=== PATIENT | female | born 1995 | race Caucasian/White ===

== ENCOUNTER 2024-11-30 15:57 | Outpatient (CLI) | payer OTHER, SELFPAY ==
[2024-12-02 07:27] LABS: HPV Source Cervix
[2024-12-05 15:25] LABS: Pap Test Digital Imaging Done
== END 2024-11-30 15:58 | disposition home or self-care (01) ==
PROVIDERS: PCP Emergency Medicine; Visit Provider Registered Nurse
DX: Z12.4 Encounter for screening for malignant neoplasm of cervix (principal); Z11.51 Encounter for screening for human papillomavirus (HPV)
CPT/HCPCS: 87624; 87625; 88141; 88142; 88175

== ENCOUNTER 2025-03-05 13:46 | Outpatient (CLI) | payer OTHER, SELFPAY ==
--- NOTE | 2025-03-05 14:00 | CRLHL7_ITS ---
For Patients: As a result of the Cures Act, medical imaging exams and procedure reports are released immediately into your electronic medical record. You may view this report before your referring provider. If you have questions, please contact your health care provider. OBSTETRICAL ULTRASOUND TRANSVAGINAL CLINICAL INDICATION: Dating and viability. LMP: 01/02/2025 HANH by LMP: 10/09/2025 Gestational age: 8 weeks 6 days PREVIOUS ULTRASOUND: No TECHNIQUE: Real-time hughes-scale imaging of the fetus was performed transvaginal. Transvaginal imaging was performed for better visualization of the endometrium and ovaries. FINDINGS: CRL: 2.8 cm, 9 weeks 4 days; HANH 10/04/2025 heart rate: 167 BPM Gestational sac: 4.1 cm, appears within normal limits Yolk sac: 4.3 mm, appears within normal limits Right ovary: Not visualized Left ovary: Not visualized IMPRESSION: 1. Single living intrauterine measures 9 weeks 4 days with sonographic due date of 10/04/2025. 2. Right-sided subchorionic hemorrhage measures 2.0 x 2.6 x 1.0 cm. 3. Left-sided subchorionic hemorrhage measures 2.9 x 2.5 x 2.0 cm. BRENTON JOY M.D. Diagnostic Radiologist [email or web address] Transcribed: 4:[address]/Dictated by: Brenton Joy MD @ 03/05/2025 2:58:00 PM (Electronically Signed)
== END 2025-03-05 13:47 | disposition home or self-care (01) ==
LOC: US 13:47
PROVIDERS: Visit Provider Registered Nurse
DX: O20.9 Hemorrhage in early pregnancy, unspecified (principal); Z3A.09 9 weeks gestation of pregnancy
CPT/HCPCS: 76817

== ENCOUNTER 2025-03-31 10:52 | Emergency (ER) | payer OTHER, SELFPAY ==
--- OUTSIDE RECORDS SUMMARY | 2025-03-31 10:54 | XMS_ITS | Clinical Summary ---
Author Organization [facility] At [facility] Address [address] [place] [address] Care Team Providers Care Tooling Inspector Name Role Phone Unavailable Primary Care Provider Unavailabl e Medications MedicationSigDispense QuantityRefillsLast FilledStart DateEnd DateStatus ALBUTEROL SULFATE HFA 90 MCG/ACTUATION AEROSOL INHALER 2 each four times a day for using inhaler - 1 ctive benzonatate (TESSALON) 200 MG capsule 1 capsule three times a day for by mouth - 24 ctive Social History Tobacco UseTypesPacks/DayYears UsedDateSmoking Tobacco: Never Assessed CommentsUnknownSex and Gender InformationValueDate RecordedSex Assigned at Not on fileLegal HaeFmitjw36/03/2022 10:03 AM ESTGender IdentityNot on file Sexual OrientationNot on file Plan of Treatment Not on file Medical Devices Not on file
--- OUTSIDE RECORDS SUMMARY | 2025-03-31 10:54 | XMS_ITS | Clinical Summary ---
Author Organization [facility] Address [address] [place] [id number] Care Team Providers Care Carpet Inspector Name Role Phone Sary, [facility] Mobile Primary Care Provider Allergies Active AllergyReactionsCriticalityNoted ZkajYtamnnmdUmumxWdtfZna40/12/2024 Social History Tobacco UseTypesPacks/DayYears UsedDateSmoking Tobacco: Never AssessedAdolescent EducationAnswerDate RecordedGetting School Help NeededNot on file04/24/2023 CommentsNoSex and Gender InformationValueDate RecordedSex Assigned at BirthNot on fileLegal MuxBvufkm88/12/2024 8:59 PM CSTGender IdentityNot on file Sexual OrientationNot on file Last Filed Vital Signs Vital SignReadingTime TakenCommentsBlood Wiqshbzb653/8204/24/2023 12:05 AM ALUMINUM SIDING APPLICATOR Plnfk9115/13/2024 12:05 AM EKBPeuuqwqqmdp58.6 ??C (97.9 ??F)04/23/2023 9:01 PM CSTRespiratory Dqzx307104/24/2023 12:05 AM CSTOxygen Edzqbuhsai51%04/24/2023 12:05 AM CSTInhaled Oxygen Concentration--Weight--Height--Body Mass Index-- Plan of Treatment Health MaintenanceDue DateLast DoneCommentsADVANCE CARE ZWJKHCMQ65/25/1995ANNUAL REVIEW OF HM GZSIZA20 1994YEARLY PREVENTIVE VISIT1997HIV SCREENING 2009HEPATITIS C JLSMVJRRJ19/25/3451CTB1211/04/2015DTAP/TDAP/TD VACCINE (6 - Td or Tdap), 08/13/2000, 05/13/1995, Additional history existsPHQ-2 (once per calendar year)5COVID-19 VACCINE ( season)2024INFLUENZA VACCINE (#1)2024ZOSTER VACCINE (1 of 2) 2044HEPATITIS B VRPVZEQRwffsgabv96/18/1996, 02/25/1995, 01/07/1995HPV CQQCDPVDsjorwjhf87/03/2014, 12/15/2007, 05/10/2007MENINGITIS VACCINECompleted 10/12/2013, 12/15/2007PNEUMOCOCCAL VACCINE: PEDIATRICS (0 to 5 YEARS) AND AT- RISK PATIENTS (6 to 49 YEARS)Aged OutNo longer eligible based on patient's age to complete this topic Insurance Care Teams Team MemberRelationshipSpecialtyStart DateEnd [facility], [address] [address] PCP - General04/23/23
--- OUTSIDE RECORDS SUMMARY | 2025-03-31 10:54 | XMS_ITS | Clinical Summary ---
Author Organization [facility] Address [address] [place] [id number] Care Team Providers Care Spreader Operator Name Role Phone Therese Neff MD Primary Care Provider Unav ailable Allergies No known active allergies Medications No known medications Active Problems ProblemNoted DateDiagnosed VtreJezttkcf21/09/2011Regular huzfazlfgzs02/20/2007 Exyfmm5506/29/2006 Immunizations ImmunizationAdministration DatesNext LdrRLB8805/13/1995,02/25/1995,01/07/1995DTaP 08/13/2000HIB PRP-OMP (PedvaxHIB)05/13/1995,02/25/1995,01/07/1995Hepatitis A (Peds)10/12/2013,12/15/2007Hepatitis B (Peds)02/28/1996,02/25/1995,01/07/1995 Human Papilloma Virus Qnpnetx5810/12/2013,12/15/2007,05/10/2007Inactivated Polio Umcfgtu4608/13/2000MMR08/13/2000,02/28/1996Meningococcal Vaccine (Menactra) 10/12/2013,12/15/2007Oral Polio Ostyedu3205/13/1995,02/25/1995,01/07/1995Tdap 12/15/2007 Family History Medical HistoryRelationNameCommentsGeneticOther 1no problems with anesthesia OtherOther 2mggf glaucomaGI DiseaseSisterirritable bowel syndromeRelationName StatusCommentsOther 1Other 2Sister Social History Tobacco UseTypesPacks/DayYears UsedDateSmoking Tobacco: NeverSmokeless Tobacco: NeverAlcohol UseStandard Drinks/WeekCommentsNo0 (1 standard drink = 0.6 oz pure alcohol)Alcoholic Drinks/day: 0PHQ-2AnswerDate RecordedPHQ-2 Gcgqe792 Social ConnectionsAnswerDate RecordedFrequency of Communication with Friends and FamilyNot on file04/12/2021Financial Resource StrainAnswerDate Recorded Difficulty of Paying Living ExpensesNot on file04/12/2021ifficulty of Paying Living ExpensesNot on file04/12/2021CommentsNoSex and Gender Information ValueDate RecordedSex Assigned at BirthNot on fileLegal BiaPmlnbc88/14/2013 5:27 AM CSTGender IdentityNot on fileSexual OrientationNot on fileOccupationIndustry Job Start DateJob End DatestudentNot on fileNot on fileNot on file Obstetrics History GravidaParaTermPretermABIABSABEctopicMultipleLivingLive Juiemi7KllyAxracyvAS Total LaborLabor/2nd/7emMnitibEgtHysjLghlBBTBreX5G9RmcrLgdwZyinloy Last Filed Vital Signs Vital SignReadingTime TakenCommentsBlood Wblottml856/6407 4:00 PM CDT Swibv237211/04/2020 4:00 PM MINEcstkfnowhq81.8 ??C (98.3 ??F)11/08/2017 1:59 PM CDTRespiratory Qrhg038911/18/2015 1:26 PM CDTOxygen Uvtyrthckm90%11/18/2015 1:26 PM CDTInhaled Oxygen Concentration--Kcpmbh892.9 kg (249 lb)11/04/2020 4:03 PM YSPTbdoaj635.3 cm (5' 3.5)11/04/2020 4:00 PM CDTBody Mass Index43.42011/04/2020 4:00 PM CDT Plan of Treatment Health MaintenanceDue DateLast DoneCommentsHIV for age 15-Hepatitis C screening for age 18-Pap test for age 21-Tetanus gllttvb0312/14/201709/MI (ht and wt on same day) for age 18+11/08/2018 11/08/2017, 08/24/2016, 11/18/2015Depression screening for age 12+11/08/2018 11/08/2017, 08/24/2016COVID-19 vaccine series (1 - 2024- season)2024 Influenza Vaccine (#1)2024Hepatitis B series for 19+Kqskqjuyl23/18/1996, 02/25/1995, 01/07/1995HPV series for age 9-08Vrjkaubkm45/03/2014, 12/15/2007, 05/10/2007Pneumococcal series for age 6-49Aged OutNo longer eligible based on patient's age to complete this topic Insurance Care Teams Team MemberRelationshipSpecialtyStart DateEnd Date [facility]
[2025-03-31 10:58] VITALS: BP 115/75; PULSE 102; RESP 18; TEMP 36.6; O2SAT 96; BMI 41.2
--- NOTE | 2025-03-31 11:12 | ED_ITS ---
HPI - General Adult General Date Seen: 03/31/25 Chief complaint: Cough Stated complaint: 12 wks. , dizzy Time Seen by Provider: 03/31/25 11:09 History of Present Illness HPI narrative: 29 yo F currently about 12 weeks , presenting to the ER today with a febrile illness leading to weakness and dizziness. She this generally healthy. No history of asthma, heart disease, arrhythmias, diabetes, or other long-term medical conditions. She is currently with her 2nd child. She is about 12 weeks. She has been experiencing some trouble with nausea during her 1st trimester but typically evening sickness rather than morning sickness. She felt that had been getting better last week. However she developed an illness with a fever beginning 3 days ago on Wednesday. Since then she has been having intermittent fevers and chills and sweats. Also body aches and headache. Also cough that is nonproductive. Also sore throat. No earache. No real abdominal pain. She has had a poor appetite and her 's been urging her to stay hydrated but she feels like she has been pretty dry. She is not having much diarrhea. She is urinating but less volume than normal. No dysuria, urgency, frequency. No pelvic cramping, vaginal bleeding, fluid leakage. She has been taking Tylenol as needed for fever. Last dose was about 8:00 a.m. this morning. She was trying to get up and take a shower today, but got very dizzy and lightheaded and presyncopal standing in the shower. She did not have any chest pain or palpitations with that. She called her clinic line and the nurse apple press operator instructed to come to the ER for fluids, suspected she might be dehydrated. Related Data Home Medications ?Medication ?Instructions ?Recorded ?Confirmed vits 168-iron 27 mg-folic cap PO 03/05/25 acid 800 mcg-omega3 235 mg capsule (One-A-Day -1) Previous Rx's ?Medication ?Instructions ?Recorded oseltamivir 75 mg capsule (Tamiflu) 75 mg PO BID 5 day s #10 caps 03/31/25 Allergies Allergy/AdvReac Type Severity Reaction Status Date / Time latex Allergy Intermediate Rash Verified 03/31/25 10:57 [facility] Medical History (Updated 03/31/25 @ 12:36 by Marshall Gray MD) Bronchitis ?J40 - Bronchitis, not specified as acute or chronic (ICD-10) Sinusitis ?J32.9 - Chronic sinusitis, unspecified (ICD-10) Surgical History (Updated 03/05/25 @ 17:10 by Isabella Galeano) S/P section ?Z98.891 - History of uterine scar from previous surgery (ICD-10) Family History (Updated 03/07/25 @ 10:00 by Dannielle De La Rosa CNM) Father Alcohol dependence Blood clot in vein Social History (Updated 03/07/25 @ 09:39 by Dannielle De La Rosa CNM) Narrative: SOCIAL Education: bachelors Work: Construction estimating Partner: Celio, Lives with: Celio- partner, Tulio- 3.5 years Pets: 2 dogs Abuse: Denies past/present Special Diet: Denies Ok with a blood transfusion: yes Culture or worship beliefs: denies RISK FACTORS Exercise Times/wk: peloton bike, walking. Less now with not feeling well Depression/Anxiety: no FARZANA: 3 PHQ 9: 3 Seat Belt Use: Routinely Smoking: Denies past/present Alcohol/day: Denies while Caffeine: 200mg daily now, before had more Drug Use: Denies past/present Chicken Pox: Yes as a child MRSA: Denies Smoking Status: Never smoker Non-prescribed substance use: denies use Exam Narrative: Exam Narrative: Constitutional: Appears well-developed and well-nourished. Alert. Conversant. Polite. a template her bedside. Non toxic. HENT: Head: Atraumatic. Nose: Nose normal. Mouth/Throat: Oral mucosa is clear but dry, not desiccated or cracked no trismus. Pharynx normal. Tonsils symmetric. No tonsillar enlargement, erythema, or exudate. Eyes: Conjunctivae normal. EOM normal. Pupils equal, round, and reactive to li ght. No scleral icterus. Neck: Normal range of motion. Neck supple. No tracheal deviation present. Cardiovascular: Normal rate, regular rhythm. No gallop. No friction rub. No murmur heard. Symmetric radial artery pulses Pulmonary/Chest: Effort normal. Dry cough. No stridor. No respiratory distress. No wheezes. No rales. No rhonchi . No tenderness. Abdominal: Soft. Bowel sounds normal. No distension. Subtle suprapubic uterine enlargement. No uterine or lower abdominal tenderness. No tenderness. No rebound. No guarding. Musculoskeletal: RUE: Normal range of motion. No tenderness. No deformity LUE: Normal range of motion. No tenderness. No deformity RLE: Normal range of motion. No edema. No tenderness. No deformity LLE: Normal range of motion. No edema. No tenderness. No deformity Neurological: Alert and oriented to person, place, and time. Normal strength. CN II-VII intact. No sensory deficit. GCS eye subscore is 4. GCS verbal subscore is 5. GCS motor subscore is 6. Normal coordination Skin: Skin is warm and dry. No rash noted. No pallor. Normal capillary refill. Psychiatric: Normal mood. Normal affect. Const: Vital Signs, click to edit/add: Vital Signs - 24 hr 03/31/25 10:58 Temperature 97.8 F Pulse Rate [Pulse Oximeter] 102 H Respiratory Rate 18 Blood Pressure [Ri ght Upper Arm] 115/75 Pulse Oximetry 96 Oxygen Delivery Me thod Room Air Course Vital Signs Vital signs: Initial Vital Signs Temperature 97.8 F 03/31/25 10:58 Temperature Source Temporal Artery Scan 03/31/25 10:58 Pulse Rate 102 H 03/31/25 10:58 Pulse Rhythm Regular 03/31/25 10:58 Respiratory Rate 18 03/31/25 10:58 Blood Pressure 115/75 03/31/25 10:58 Blood Pressure Mean 88 03/31/25 10:58 Blood Pressure Position Sitting 03/31/25 10:58 Pulse Oximetry 96 03/31/25 10:58 Oxygen Delivery Method Room Air 03/31/25 10:58 Vital Signs Temperature 97.8 F 03/31/25 10:58 Pulse Rate 102 H 03/31/25 10:58 Respiratory Rate 18 03/31/25 10:58 Blood Pressure 115/75 03/31/25 10:58 Pulse Oximetry 96 03/31/25 10:58 Oxygen Delivery Method Room Air 03/31/25 10:58 Temperature 97.8 F 03/31/25 10:58 Pulse Rate 102 H 03/31/25 10:58 Respiratory Rate 18 03/31/25 10:58 Blood Pressure 115/75 03/31/25 10:58 Pulse Oximetry 96 03/31/25 10:58 Oxygen Delivery Method Room Air 03/31/25 10:58 Medications Administered Medications: Discontinued Medications Generic Name Dose Route Start Last Admin Trade Name Sander PRN Reason Stop Dose Admin Sodium Chloride 1,000 mls @ 1,000 mls/hr 03/31/25 11:30 03/31/25 12:35 0.9 % Sodium Chloride 1000 Ml IV 03/31/25 12:29 Infused .Q1H BRITTNEY Infusion Medical Decision Making MDM Narrative Medical decision making narrative: This patient presents for evaluation of cough, fever, and myalgias. She has been sick for couple of days with poor oral intake and got very lightheaded and presyncopal while in the shower this morning. Suspect this was probably dehydration and orthostatic dizziness likely related to blood pooling in her skin from the hot water in the shower. We did check an EKG to make sure there was no sign of arrhythmia or early min genic abnormality and the EKG is normal. She was not having any chest pain, shortness of breath to suggest acute coronary syndrome, PE. She is but overall doing well. She is not having any vaginal bleeding, pelvic cramping to suggest ectopic or miscarriage. This is consistent with an influenza like illness. Viral PCR is positive for influenza A. Negative for coronavirus or RSV. I do think she would meet criteria for treatment with Tamiflu because of her high risk status with . Fortunately there is no sign of any life-threatening influenza complication at this time. No signs of hypoxia, wheezing or bronchospasm. Lung sounds are clear to auscultation bilaterally so I have low suspicion for superimposed community-acquired pneumonia. We will hold off on chest x-ray for now. Laboratory workup shows normal white count and hemoglobin. Electrolytes are reassuring save for mild hyponatremia which I think reflects dehydration. She has received a L of normal saline here in the ER and is feeling better. She think she will be able to stay hydrated at home and They are at risk for pneumonia but no signs of this are detected on today's visit. Close followup of primary care physician is indicated and return to the ED for high fevers > 103 for more than 48 hours more, increasing productive cough, shortness of breath, or confusion. There is no signs of serious bacterial infection such as bacteremia, meningitis, UTI/pyelonephritis, strep pharyngitis, etc. Lab Data Labs: Lab Results 03/31/25 03/31/25 Range/Units 11:03 11:40 WBC 8.08 (4.50-11.00) K/uL RBC 4.03 (4.00-5.20) m/uL Hgb 13.5 (12.0-16.0) gm/dL Hct 37.4 (33.0-51.0) % MCV 93 (80-100) fL MCH 34 (26-34) pg MCHC 36 (32-36) gm/dL RDW Coeff of Saleem 12.2 (11.5-15.5) % Plt Count 179 (140-440) K/uL Neut % (Auto) 80.6 H (42.0-72.0) % Lymph % (Auto) 7.4 L (20-44) % [place] % (Auto) 11.8 H (0.0-11.0) % Eos % (Auto) 0.1 (0.0-7.0) % Baso % (Auto) 0.1 (0.0-3.0) % Neut # (Auto) 6.50 (1.7-7.0) K/uL Lymph # (Auto) 0.60 L (0.90-2.90) K/uL [place] # (Auto) 1.00 H (0.00-0.90) K/UL Eos # (Auto) 0.01 (0.00-0.50) K/uL Baso # (Auto) 0.01 (0.00-0.30) K/uL Abs Immat Gran (auto) 0.00 (0.00-0.30) K/uL Imm/Tot Granulo (auto) 0.0 % Sodium 133 L (135-149) mmol/L Potassium 3.9 (3.6-5.1) mmol/L Chloride 104 (96-114) mmol/L Carbon Dioxide 21 (20-32) mmol/L Anion Gap 8 (7-15) mEq/L BUN 4 L (5-24) mg/dL Creatinine 0.5 (0.5-1.5) mg/dL Estimated Creat Clear 142.07 Estimated GFR 129 ml/min Glucose 96 (60-115) mg/dL Calcium 9.0 (8.4-10.6) mg/dL SARS-CoV-2 (PCR) Negative SARS-CoV-2 (Negative) Influenza Type A (PCR) POSITIVE PCR FLU A A (Negative) Influenza Type B (PCR) Negative PCR FLU B (Negative) RSV (PCR) Negative PCR RSV (Negative) ECG Data Attestation: I personally reviewed and interpreted this ECG as follows: Interpretation: Sinus rhythm with sinus arrhythmia Rate 95 OK interval 142 Normal QRS axis. No pathologic Q-waves. Computer interpretation says septal infarct but I think this is not correct there are small R waves in leads V1 and V2 No ST segment elevation or depression. T-waves are normal. QT 338, QTC 424. No Brugada syndrome. No Muwrd-Kywajujko-Cmibv. Discharge Plan Discharge Clinical Impression: Influenza A, Acute dehydration, Pre-syncope Patient Disposition: Home, Self-Care Condition: Stable Instructions: Dehydration (ED), Influenza (DC) Additional Instructions: As we discussed, please come back to the ER right away if you have any concerns especially worsening fever, dizziness, lightheadedness, chest pain, trouble breathing, or any concerns with your . With your influenza, please to continue to use Tylenol as needed for fever, headache, body aches. Drink plenty of fluids and stay hydrated. You can add other liquids like Gatorade, chicken soup and had solid foods as you feel better. Please start on the Tamiflu today. This is an antiviral that time will help reduce the severity and duration of your influenza illness and reduce the odds of developing a severe complication of influenza. Prescriptions: New oseltamivir [Tamiflu] 75 mg capsule 75 mg PO BID 5 Days Qty: 10 0RF No Action One-A-Day -1 27 mg iron- 800 mcg-235 mg capsule PO Follow Up/Referrals: Provider,Not a Local [Primary Care Provider, Family Practice] Stand Alone Forms: Work/School Release, Engagement Labs Info Instructions
[2025-03-31 11:49] LABS: Hematocrit* 37.4 % (33.0-51.0); Hemoglobin* 13.5 gm/dL (12.0-16.0); Immature Granulocytes Abs Auto 0.00 K/uL (0.00-0.30); Immature Granulocytes Pct Auto 0.0 %; Lymphocytes Absolute Auto 0.60 K/uL (0.90-2.90); Mean Corpuscular HGB Conc 36 gm/dL (32-36); Mean Corpuscular Hemoglobin 34 pg (26-34); Mean Corpuscular Volume 93 fL (80-100); RDW Coefficient of Variation % 12.2 % (11.5-15.5); Red Blood Count* 4.03 m/uL (4.00-5.20); White Blood Count* 8.08 K/uL (4.50-11.00)
[2025-03-31 11:53] LABS: PCR FLU A POSITIVE PCR FLU A (Negative); PCR FLU B Negative PCR FLU B (Negative); PCR RSV Negative PCR RSV (Negative); SARS PCR* Negative SARS-CoV-2 (Negative)
[2025-03-31 12:00] VITALS: PULSE 89; RESP 16; O2SAT 97
[2025-03-31 12:01] LABS: Chloride* 104 mmol/L (96-114)
[2025-03-31 12:02] LABS: Potassium* 3.9 mmol/L (3.6-5.1); Sodium* 133 mmol/L (135-149)
[2025-03-31 12:04] LABS: Blood Urea Nitrogen* 4 mg/dL (5-24); Creatinine* 0.5 mg/dL (0.5-1.5); Est. Creatinine Clearance* 142.07; Estimated Glomerular Filt Rate 129 ml/min
[2025-03-31 12:05] LABS: Anion Gap 8 mEq/L (7-15); Calcium* 9.0 mg/dL (8.4-10.6); Carbon Dioxide* 21 mmol/L (20-32); Glucose* 96 mg/dL (60-115)
[2025-03-31 12:22] LABS: Slide Review Reflex No
== END 2025-03-31 12:47 | disposition home or self-care (01) ==
PROVIDERS: Emergency Provider Emergency Medicine
DX: O99.511 Diseases of the respiratory system complicating pregnancy, first trimester (principal); J10.1 Influenza due to other identified influenza virus with other respiratory manifestations; E86.0 Dehydration; R55 Syncope and collapse; Z3A.12 12 weeks gestation of pregnancy
CPT/HCPCS: 36415; 80048; 85025; 87631; 93005; 96360; 99283; 99284; J7030